=== PATIENT | male | born 1995 ===

== ENCOUNTER 2024-03-19 01:31 | Emergency (ER) | payer SELFPAY ==
--- NOTE | 2024-03-19 01:50 | ECG_ITS ---
Test Date: 2024-03-19 01:56:41 Measurements Intervals [place] Rate: 95 P: 55 WV: 145 QRS: 29 QRSD: 97 T: 6 QT: 289 QTc: 365 Interpretive Statements SINUS RHYTHM WITH SINUS ARRHYTHMIA MINIMAL Q WAVES- HIGH LATERAL LEADS NONSPECIFIC ST-T WAVE ABNORMALITY- INFERIOR LEADS BASELINE ARTIFACT- I, II, III, AVR, AVL, AVF, V4 BORDERLINE ECG No previous ECG available for comparison Electronically Signed On 03-19-2024 06:41:04 CDT by Abimael Dolan D.O.
--- NOTE | 2024-03-19 02:57 | PC.NURSE ---
Pt no longer observed in waiting area. Called name, no response.
--- NOTE | 2024-03-19 03:11 | PC.NURSE ---
Pt returned from restroom area. No distress noted.
--- NOTE | 2024-03-19 03:40 | PC.NURSE ---
name called pt not here in dept
== END 2024-03-19 03:41 | disposition left against medical advice (07) ==
LOC: ANHED 03:03
PROVIDERS: Emergency Provider Emergency Medicine
DX: F41.9 Anxiety disorder, unspecified (principal)
CPT/HCPCS: 93005; 99199